=== PATIENT | female | born 1965 | race Caucasian/White ===

== ENCOUNTER → 2019-03-25 07:55 | Outpatient (BNVA) | payer OTHER, MEDICARE, SELFPAY | PROVIDERS: Family Provider Family Medicine; PCP Family Medicine; Visit Provider Anesthesiology | DX: G89.29 Other chronic pain (principal); M54.16 Radiculopathy, lumbar region; M47.817 Spondylosis without myelopathy or radiculopathy, lumbosacral region; Z79.891 Long term (current) use of opiate analgesic | CPT/HCPCS: 99213; 99214 ==

== ENCOUNTER → 2019-05-20 09:20 | Outpatient (BNVA) | payer MEDICARE, OTHER, SELFPAY | PROVIDERS: Family Provider Family Medicine; PCP Family Medicine; Visit Provider Nurse Practitioner | DX: M54.5 Low back pain (principal); G89.29 Other chronic pain; M25.511 Pain in right shoulder; M25.512 Pain in left shoulder; Z79.891 Long term (current) use of opiate analgesic | CPT/HCPCS: 99213; 99214 ==

== ENCOUNTER → 2019-06-20 10:42 | Outpatient (BNVA) | payer MEDICARE, OTHER, SELFPAY | PROVIDERS: Family Provider Family Medicine; PCP Family Medicine; Visit Provider Family Medicine | DX: F41.1 Generalized anxiety disorder (principal); Z23 Encounter for immunization; N18.3 Chronic kidney disease, stage 3 (moderate); I25.10 Atherosclerotic heart disease of native coronary artery without angina pectoris; K21.9 Gastro-esophageal reflux disease without esophagitis; J30.9 Allergic rhinitis, unspecified; E11.22 Type 2 diabetes mellitus with diabetic chronic kidney disease; F33.1 Major depressive disorder, recurrent, moderate; Z79.899 Other long term (current) drug therapy; J30.1 Allergic rhinitis due to pollen | CPT/HCPCS: 80048; 80069; 82306; 82310; 82570; 83036; 83970; 84156; 85007; 85027 ==

== ENCOUNTER → 2019-08-30 09:05 | Outpatient (BNVA) | payer MEDICARE, OTHER, SELFPAY | PROVIDERS: Family Provider Family Medicine; PCP Family Medicine; Visit Provider Anesthesiology | DX: G89.29 Other chronic pain (principal); M54.42 Lumbago with sciatica, left side; M54.16 Radiculopathy, lumbar region; M47.817 Spondylosis without myelopathy or radiculopathy, lumbosacral region; M53.3 Sacrococcygeal disorders, not elsewhere classified; M54.2 Cervicalgia; Z79.891 Long term (current) use of opiate analgesic | CPT/HCPCS: 99213; 99214 ==

== ENCOUNTER → 2019-10-13 09:59 | Outpatient (BNVA) | payer MEDICARE, OTHER, SELFPAY | PROVIDERS: Family Provider Family Medicine; PCP Family Medicine; Visit Provider Anesthesiology | DX: G89.29 Other chronic pain (principal); M54.42 Lumbago with sciatica, left side; M47.817 Spondylosis without myelopathy or radiculopathy, lumbosacral region; M53.3 Sacrococcygeal disorders, not elsewhere classified; M54.2 Cervicalgia; M25.552 Pain in left hip; Z79.891 Long term (current) use of opiate analgesic | CPT/HCPCS: 99214 ==

== ENCOUNTER → 2019-10-28 09:33 | Outpatient (BNVA) | payer MEDICARE, OTHER, SELFPAY | PROVIDERS: Family Provider Family Medicine; PCP Family Medicine; Referring Provider Internal Medicine; Visit Provider Internal Medicine | DX: N18.3 Chronic kidney disease, stage 3 (moderate) (principal) | CPT/HCPCS: 80069; 82310; 82570; 83970; 84156; 85007; 85027 ==

== ENCOUNTER → 2019-12-20 07:51 | Outpatient (BNVA) | payer MEDICARE, OTHER, SELFPAY | PROVIDERS: Family Provider Family Medicine; PCP Family Medicine; Visit Provider Anesthesiology | DX: G89.29 Other chronic pain (principal); M54.42 Lumbago with sciatica, left side; M54.41 Lumbago with sciatica, right side; M47.817 Spondylosis without myelopathy or radiculopathy, lumbosacral region; M54.16 Radiculopathy, lumbar region; M25.511 Pain in right shoulder; M25.512 Pain in left shoulder; M54.2 Cervicalgia; Z79.891 Long term (current) use of opiate analgesic | CPT/HCPCS: 99214 ==

== ENCOUNTER → 2020-02-10 08:35 | Outpatient (BNVA) | payer MEDICARE, OTHER, SELFPAY | PROVIDERS: Family Provider Family Medicine; PCP Family Medicine; Visit Provider Anesthesiology | DX: G89.29 Other chronic pain (principal); M54.16 Radiculopathy, lumbar region; M47.817 Spondylosis without myelopathy or radiculopathy, lumbosacral region; M53.3 Sacrococcygeal disorders, not elsewhere classified; M54.2 Cervicalgia; Z79.891 Long term (current) use of opiate analgesic | CPT/HCPCS: 99214 ==

== ENCOUNTER → 2020-02-28 13:35 | Outpatient (BNVA) | payer MEDICARE, OTHER, SELFPAY | PROVIDERS: Family Provider Family Medicine; PCP Family Medicine; Visit Provider Family Medicine | DX: E11.22 Type 2 diabetes mellitus with diabetic chronic kidney disease (principal); F41.1 Generalized anxiety disorder; I25.10 Atherosclerotic heart disease of native coronary artery without angina pectoris; K21.9 Gastro-esophageal reflux disease without esophagitis; F33.1 Major depressive disorder, recurrent, moderate; Z79.899 Other long term (current) drug therapy; N18.30 Chronic kidney disease, stage 3 unspecified | CPT/HCPCS: 80053; 80061; 83036 ==

== ENCOUNTER → 2020-03-21 08:27 | Outpatient (BNVA) | payer MEDICARE, OTHER, SELFPAY | PROVIDERS: Family Provider Family Medicine; PCP Family Medicine; Visit Provider Anesthesiology | DX: G89.29 Other chronic pain (principal); M54.16 Radiculopathy, lumbar region; M47.817 Spondylosis without myelopathy or radiculopathy, lumbosacral region; M54.2 Cervicalgia; M25.511 Pain in right shoulder; M25.512 Pain in left shoulder; Z79.891 Long term (current) use of opiate analgesic | CPT/HCPCS: 99214 ==

== ENCOUNTER → 2020-04-20 08:58 | Outpatient (BNVA) | payer MEDICARE, OTHER, SELFPAY | PROVIDERS: Family Provider Family Medicine; PCP Family Medicine; Visit Provider Nurse Practitioner | DX: G89.29 Other chronic pain (principal); M47.817 Spondylosis without myelopathy or radiculopathy, lumbosacral region; M54.16 Radiculopathy, lumbar region; M53.3 Sacrococcygeal disorders, not elsewhere classified; M15.9 Polyosteoarthritis, unspecified; M25.511 Pain in right shoulder; M25.512 Pain in left shoulder; M54.2 Cervicalgia; Z79.891 Long term (current) use of opiate analgesic; Z79.899 Other long term (current) drug therapy | CPT/HCPCS: 99212 ==

== ENCOUNTER → 2020-04-26 08:18 | Outpatient (BNVA) | payer MEDICARE, OTHER, SELFPAY | PROVIDERS: Family Provider Family Medicine; PCP Family Medicine; Referring Provider Internal Medicine; Visit Provider Internal Medicine | DX: N18.30 Chronic kidney disease, stage 3 unspecified (principal) | CPT/HCPCS: 80069; 82043; 82542; 82652; 85025 ==

== ENCOUNTER → 2020-06-15 08:39 | Outpatient (BNVA) | payer MEDICARE, OTHER, SELFPAY | PROVIDERS: Family Provider Family Medicine; PCP Family Medicine; Visit Provider Nurse Practitioner | DX: G89.29 Other chronic pain (principal); M54.16 Radiculopathy, lumbar region; M47.817 Spondylosis without myelopathy or radiculopathy, lumbosacral region; M25.551 Pain in right hip; M25.552 Pain in left hip; M54.2 Cervicalgia; M25.511 Pain in right shoulder; M25.512 Pain in left shoulder; M53.3 Sacrococcygeal disorders, not elsewhere classified; Z79.891 Long term (current) use of opiate analgesic | CPT/HCPCS: 99213 ==

== ENCOUNTER → 2020-08-10 08:11 | Outpatient (BNVA) | payer MEDICARE, OTHER, SELFPAY | PROVIDERS: Family Provider Family Medicine; PCP Family Medicine; Visit Provider Nurse Practitioner | DX: G89.29 Other chronic pain (principal); M47.817 Spondylosis without myelopathy or radiculopathy, lumbosacral region; M25.551 Pain in right hip; M25.552 Pain in left hip; M54.2 Cervicalgia; M15.9 Polyosteoarthritis, unspecified; G56.13 Other lesions of median nerve, bilateral upper limbs; M53.3 Sacrococcygeal disorders, not elsewhere classified; Z79.891 Long term (current) use of opiate analgesic | CPT/HCPCS: 99213; 99214 ==

== ENCOUNTER → 2020-08-22 09:22 | Outpatient (BNVA) | payer MEDICARE, OTHER, SELFPAY | PROVIDERS: Family Provider Family Medicine; PCP Family Medicine; Referring Provider Internal Medicine; Visit Provider Internal Medicine | DX: E11.22 Type 2 diabetes mellitus with diabetic chronic kidney disease (principal); N18.30 Chronic kidney disease, stage 3 unspecified | CPT/HCPCS: 80069; 82043; 82310; 83036; 83970; 85025 ==

== ENCOUNTER → 2020-10-17 08:45 | Outpatient (BNVA) | payer MEDICARE, OTHER, SELFPAY | PROVIDERS: Family Provider Family Medicine; PCP Family Medicine; Visit Provider Anesthesiology | DX: G89.29 Other chronic pain (principal); M54.16 Radiculopathy, lumbar region; M47.817 Spondylosis without myelopathy or radiculopathy, lumbosacral region; M54.2 Cervicalgia; Z79.891 Long term (current) use of opiate analgesic; Z87.891 Personal history of nicotine dependence | CPT/HCPCS: 99214 ==

== ENCOUNTER → 2020-12-12 07:50 | Outpatient (BNVA) | payer MEDICARE, OTHER, SELFPAY | PROVIDERS: Family Provider Family Medicine; PCP Family Medicine; Visit Provider Anesthesiology | DX: G89.29 Other chronic pain (principal); M54.16 Radiculopathy, lumbar region; M54.2 Cervicalgia; Z79.891 Long term (current) use of opiate analgesic | CPT/HCPCS: 99214 ==

== ENCOUNTER → 2021-02-06 07:58 | Outpatient (BNVA) | payer MEDICARE, OTHER, SELFPAY | PROVIDERS: Family Provider Family Medicine; PCP Family Medicine; Visit Provider Anesthesiology | DX: G89.29 Other chronic pain (principal); M54.16 Radiculopathy, lumbar region; M47.817 Spondylosis without myelopathy or radiculopathy, lumbosacral region; M25.551 Pain in right hip; M25.552 Pain in left hip; M15.9 Polyosteoarthritis, unspecified; M54.2 Cervicalgia; M25.512 Pain in left shoulder; M25.511 Pain in right shoulder; Z79.891 Long term (current) use of opiate analgesic; Z79.899 Other long term (current) drug therapy | CPT/HCPCS: 99214 ==

== ENCOUNTER → 2021-04-09 09:11 | Outpatient (BNVA) | payer MEDICARE, OTHER, SELFPAY | PROVIDERS: Family Provider Family Medicine; PCP Family Medicine; Visit Provider Anesthesiology | DX: G89.29 Other chronic pain (principal); M54.16 Radiculopathy, lumbar region; M47.817 Spondylosis without myelopathy or radiculopathy, lumbosacral region; M54.2 Cervicalgia; M53.3 Sacrococcygeal disorders, not elsewhere classified; M25.511 Pain in right shoulder; M25.512 Pain in left shoulder; M25.551 Pain in right hip; M25.552 Pain in left hip; Z79.899 Other long term (current) drug therapy; Z79.891 Long term (current) use of opiate analgesic; Z87.891 Personal history of nicotine dependence | CPT/HCPCS: 99214 ==

== ENCOUNTER → 2021-04-16 13:45 | Outpatient (BNVA) | payer MEDICARE, OTHER, SELFPAY | PROVIDERS: Family Provider Family Medicine; PCP Family Medicine; Visit Provider Family Medicine | DX: I25.10 Atherosclerotic heart disease of native coronary artery without angina pectoris (principal); Z13.220 Encounter for screening for lipoid disorders; Z13.6 Encounter for screening for cardiovascular disorders; E11.22 Type 2 diabetes mellitus with diabetic chronic kidney disease; N18.30 Chronic kidney disease, stage 3 unspecified | CPT/HCPCS: 80053; 80061; 83036 ==

== ENCOUNTER → 2021-08-20 09:57 | Outpatient (BNVA) | payer MEDICARE, OTHER, SELFPAY | PROVIDERS: Family Provider Family Medicine; PCP Family Medicine; Visit Provider Internal Medicine | DX: N18.31 Chronic kidney disease, stage 3a (principal) | CPT/HCPCS: 80069; 82043; 82306; 82310; 83970; 85025 ==

== ENCOUNTER 2022-03-19 09:36 | Outpatient (CLI) | payer MEDICARE, OTHER, SELFPAY ==
--- NOTE | 2022-03-19 10:45 | US_ITS ---
WS: [id number] Thyroid ultrasound, 03/19/2022 Clinical Data: E01.0 - Iodine-deficiency related diffuse (endemic) goiter Comparison: None. Findings: The right lobe of thyroid measures 5.2 cm x 3.0 cm x 2.8 cm. The echotexture shows irregularity with numerous cysts and nodules. The left lobe measures 4.5 cm x 1.8 cm x 1.6 cm. The echotexture shows irregularity with numerous cys ts and nodules. The isthmus measured 0.6 cm. with a nodule. US/US thyroid 58510 Impression: Multinodular goiter.
== END 2022-03-19 09:37 | disposition home or self-care (01) ==
LOC: RAD 09:38
PROVIDERS: Family Provider Family Medicine; PCP Family Medicine; Visit Provider Family Medicine
DX: E01.0 Iodine-deficiency related diffuse (endemic) goiter (principal)
CPT/HCPCS: 76536

== ENCOUNTER → 2022-04-29 13:16 | Outpatient (BNVA) | payer MEDICARE, OTHER, SELFPAY | PROVIDERS: Family Provider Family Medicine; PCP Family Medicine; Referring Provider Family Medicine; Visit Provider Internal Medicine | DX: E07.9 Disorder of thyroid, unspecified (principal); E04.1 Nontoxic single thyroid nodule; E04.2 Nontoxic multinodular goiter; K21.9 Gastro-esophageal reflux disease without esophagitis | CPT/HCPCS: 36415; 84439; 84443; 99204 ==

== ENCOUNTER → 2022-05-19 08:49 | Outpatient (BNVA) | payer MEDICARE, OTHER, SELFPAY | PROVIDERS: Family Provider Family Medicine; PCP Family Medicine; Visit Provider Family Medicine | DX: E11.22 Type 2 diabetes mellitus with diabetic chronic kidney disease (principal); N18.30 Chronic kidney disease, stage 3 unspecified; Z13.220 Encounter for screening for lipoid disorders; Z13.6 Encounter for screening for cardiovascular disorders; I25.10 Atherosclerotic heart disease of native coronary artery without angina pectoris | CPT/HCPCS: 80053; 80061; 83036 ==

== ENCOUNTER → 2022-08-20 09:44 | Outpatient (BNVA) | payer MEDICARE, OTHER, SELFPAY | PROVIDERS: Family Provider Family Medicine; PCP Family Medicine; Visit Provider Nurse Practitioner Family | DX: N18.9 Chronic kidney disease, unspecified (principal); Z79.899 Other long term (current) drug therapy | CPT/HCPCS: 80069; 82306; 82310; 82570; 83970; 84156; 85025 ==

== ENCOUNTER → 2023-03-30 09:58 | Outpatient (BNVA) | payer MEDICARE, OTHER, SELFPAY | PROVIDERS: Family Provider Family Medicine; PCP Family Medicine; Visit Provider Family Medicine | DX: I25.10 Atherosclerotic heart disease of native coronary artery without angina pectoris (principal); E11.22 Type 2 diabetes mellitus with diabetic chronic kidney disease; I10 Essential (primary) hypertension; N18.30 Chronic kidney disease, stage 3 unspecified | CPT/HCPCS: 80053; 80061; 83036; 83735 ==

== ENCOUNTER → 2023-06-10 07:44 | Outpatient (BNVA) | payer MEDICARE, OTHER, SELFPAY | PROVIDERS: Family Provider Family Medicine; PCP Family Medicine; Visit Provider Internal Medicine | DX: E07.9 Disorder of thyroid, unspecified (principal); E04.2 Nontoxic multinodular goiter; E04.9 Nontoxic goiter, unspecified | CPT/HCPCS: 99214 ==

== ENCOUNTER → 2023-08-19 09:08 | Outpatient (BNVA) | payer MEDICARE, OTHER, SELFPAY | PROVIDERS: Family Provider Family Medicine; PCP Family Medicine; Referring Provider Internal Medicine; Visit Provider Internal Medicine | DX: N18.30 Chronic kidney disease, stage 3 unspecified (principal) | CPT/HCPCS: 80069; 82043 ==

== ENCOUNTER 2023-11-03 10:06 | Observation (INO) | payer MEDICARE, OTHER, SELFPAY ==
[2023-11-03] VITALS (26 sets, daily range): BP systolic 120–150; BP diastolic 54–77; PULSE 49–78; RESP 9–26; TEMP 36.1–37; O2SAT 90–99; BMI 29.2
--- NOTE | 2023-11-03 05:57 | ECG_ITS ---
[facility] Test Date: 2023-11-03 Pat Name: Tabitha Schmidt Department: Room: Gender: Female Md Ophthalmologist: : 1965 Requested By: Betina Alex Order Number: [id number] Jewell MD: Robert Singleton M.D. Measurements Intervals Reedy Rate: 53 P: 8 NV: 151 QRS: 36 QRSD: 78 T: 48 QT: 426 QTc: 402 Interpretive Statements SINUS BRADYCARDIA SEPTAL MYOCARDIAL INFARCTION , PROBABLY OLD [40+ ms Q WAVE IN V1/V2] Compared to ECG 11/29/2018 09:14:35 No significant changes Electronically Signed On 11-03-2023 7:40:27 CDT by Robert Singleton M.D. [email or web address]/store/NU/[id number] f
[2023-11-03] MEDS: sodium chloride 0.9% 1,000 ML 30 ML IV (06:25)
[2023-11-03 06:42] LABS: Anion Gap 14.7 (5-19); Blood Urea Nitrogen 16 mg/dL (6-20); Calcium 8.9 mg/dL (8.5-10.5); Carbon Dioxide 23 mmol/L (22-29); Chloride 105 mmol/L (98-107); Creatinine Clr Calc Pharmacy 57.2024; Glomerular Filtration Rate 56.9 mL/min (90-130); Glucose 90 mg/dL (65-115); Osmolality Calculated 289 mOsm/kg (285-295); Potassium 3.7 mmol/L (3.5-5.1); Sodium 139 mmol/L (136-145)
--- NOTE | 2023-11-03 06:54 | W.PM.OPSUD ---
Surgery/Procedure H&P Update DATE OF PROCEDURE: November 03, 2023 DATE H&P PERFORMED: 10/09/23 PRIMARY INDICATION FOR PROCEDURE: Symptomatic thyroid nodules PLANNED PROCEDURE: Operation Date: 11/03/23 07:00 Proposed Procedures p Hemithyroidectomy 11530, E04.2(Right) - Himanshu Carroll MD
[2023-11-03] MEDS: ceFAZolin 2,000 mg SDV 2000 MG IVP ×3 (07:00→23:17)
--- NOTE | 2023-11-03 07:08 | ANES.PREANE2 ---
Pre-Anesthetic Assessment Height/Weight: Height 1.57 m Weight 72.575 kg Temp Pulse Resp BP Pulse Ox O2 Del Method 97.2 F L 56 L 16 150/76 97 Room Air 11/03/23 05:50 11/03/23 05:50 11/03/23 05:50 11/03/23 05:50 11/03/23 05:50 11/03/23 05:50 Operation Date: 11/03/23 07:00 Proposed Procedures p Hemithyroidectomy 10439, E04.2(Right) - Himanshu Carroll MD Familial anesthetic complications: None Was Beta Joanna taken within 24 hours: N/A Was Clonidine taken within 24 hours: N/A Last intake: Intake Last Liquid Date 11/02/23 Last Liquid Time 12:00 Last Solid Date 11/02/23 Last Solid Time 18:00 Social No alcohol and No tobacco Exam alert, oriented x 3, clear to auscultation bilaterally and regular rate & rhythm Airway Mallampati: Class II Dentition: full Pulmonary Sleep Apnea CV/HEM Coronary Artery Disease (CABG -- denies any CP, NETTLES, SYncope) and Hypertension Chronic Renal Insufficiency GI Gastroesophageal Reflux Disease gastric sleeve Metabolic Hyperlipidemia Anesthetic Plan ASA status: 3 Anesthesia: General Risk of > 500 ml blood loss (7ml/kg in children): No Medications/Allergies Home Medications Medication Instructions Recorded Confirmed Last Taken Type aspirin 81 mg tablet,delayed 81 mg PO ONCE 03/17/19 11/02/23 11/02/23 History release (Adult Low Dose Aspirin) diclofenac sodium 1 % topical gel 1 gm topical QID 03/17/19 11/02/23 Unknown History (Voltaren) nystatin 100,000 unit/gram topical 1 applic topical BID 03/17/19 11/02/23 Unknown History powder omega 5-fwn-duv-fish oil 1,200 mg 1 cap PO DAILY 03/17/19 11/02/23 11/02/23 History (144 mg-216 mg) capsule cholecalciferol (vitamin D3) 50 50 mcg PO DAILY 07/15/19 11/02/23 11/02/23 History mcg (2,000 unit) capsule ascorbic acid (vitamin C) 1,000 mg 1,000 mg PO DAILY 90 days #90 tabs 06/21/20 11/02/23 11/02/23 Rx tablet oxycodone 15 mg tablet 15 mg PO TID PRN pain 30 days #90 04/09/21 11/02/23 11/02/23 Rx tabs miscellaneous medical supply See Rx Instructions miscellaneous 08/06/21 11/02/23 Unknown Rx .COMPLEX #1 ea miscellaneous medical supply See Rx Instructions miscellaneous 04/10/22 11/02/23 Unknown Rx .COMPLEX #1 ea fexofenadine 180 mg tablet 180 mg PO Q24H 90 days #90 tabs 03/30/23 11/02/23 11/02/23 Rx fluoxetine 40 mg capsule 80 mg (2 x 40 mg) PO DAILY 90 days 09/28/23 11/02/23 11/02/23 Rx #90 caps fluticasone propionate 50 1 spray intranasal DAILY 90 days 09/28/23 11/02/23 Unknown Rx mcg/actuation nasal #54.6 mL spray,suspension furosemide 20 mg tablet 20 mg PO DAILY PRN edema 90 days 09/28/23 11/02/23 Unknown Rx #90 tabs pantoprazole 20 mg tablet,delayed 20 mg PO DAILY 90 days #90 tabs 09/28/23 11/02/23 11/02/23 Rx release simvastatin 40 mg tablet 40 mg PO DAILY 90 days #90 tabs 09/28/23 11/02/23 11/02/23 Rx Allergies Allergy/AdvReac Type Severity Reaction Status Date / Time No Known Allergies Allergy Verified 09/28/23 07:17 Current Medications Generic Name Dose Route Start Last Admin Trade Name Freq PRN Reason Stop Dose Admin Sodium Chloride 1,000 mls @ 30 mls/hr 11/03/23 05:45 11/03/23 06:25 Sodium Chloride 0.9% IV 11/04/23 05:44 30 mls/hr .Q24H SUMA Administration PFS Anesthesia Medical History YOLIS (obstructive sleep apnea) Encounter for long-term opiate analgesic use CAD (coronary artery disease) ELANA and BB intolerance CKD (chronic kidney disease) Depression NIHARIKA (generalized anxiety disorder) Controlled type 2 diabetes mellitus Bilateral carpal tunnel syndrome Pain management contract signed Lumbosacral spondylosis without myelopathy Bilateral hip pain Chronic neck pain Chronic pain of both shoulders Long-term use of high-risk medication Generalized osteoarthritis Chronic radicular low back pain Chronic lumbosacral pain Median neuropathy of both upper extremities Chronic sacroiliac joint pain Surgical History S/P CABG x 2 11/2013- [place] S/P gastric surgery Laparoscopic vertical gastric sleeve performed on 10/20/17. S/P carpal tunnel release RIGHT 2001- [facility] * Dr. Danielle 07/31/16 Open release of the median nerve at the wrist on the right. 06/06/16 Dr. Danielle Open release of the median nerve at the wrist on the LEFT S/P decompression of ulnar nerve Dr Danielle 12/11/16 Open release of the ulnar nerve at the left elbow, with subcutaneous transposition. 02/09/17*- RIGHT SIDE Family History Mother Diabetes Denies family history of Anesthesia complication Bleeding disorder Social History Smoking and tobacco/nicotine status: former use of tobacco/nicotine Quit status (tobacco/nicotine): has quit using Year quit tobacco: 2007 Second hand smoke exposure: No Alcohol intake: never Substance/Drug Use: never Adopted: No Caregiver/support person: No Lives independently: Yes Female Reproductive History Spontaneous abortions: No Data Anesthesia 11/03/23 06:14 BMP 11/03/23 06:14 Sodium 139 Potassium 3.7 Chloride 105 Carbon Dioxide 23 BUN 16 Creatinine 1.0 H Glucose 90 Calcium 8.9 Cardiac Studies: No Data to Display
[2023-11-03] MEDS: ceFAZolin 1,000 mg SDV 1000 MG IRRIGATION (07:57)
[2023-11-03] MEDS: lidocaine-epi 1% 20 mL INJ INJECTION (07:58)
[2023-11-03] MEDS: thrombin 5,000 unit SDV 5000 UNIT XX (08:43)
[2023-11-03] MEDS: fluorescein 1 mg Strip 3 MG XX (08:45)
[2023-11-03] MEDS: EPINEPHrine 1 mg/mL INJ 3 MG XX (08:45)
[2023-11-03] MEDS: neomycin-poly-bacitracin oint 28 gm 1 APPLIC TOPICAL (09:16)
--- NOTE | 2023-11-03 09:47 | P.OP_ITS ---
Operative Report Date of procedure: November 03, 2023 Pre-op diagnosis: Symptomatic right thyroid lobe and isthmus nodules Post-op diagnosis: Same Post-op findings: Large right thyroid lobe and isthmus nodules O/W Normal right tracheoesophageal groove Procedure done: Right hemithyroidectomy with isthmusectomy Implants: None Specimens removed/disposition: Right thyroid lobe and isthmus Pathology: Right thyroid lobe and isthmus Surgeon: Himanshu Carroll MD Printing Sign Machine Operator: Adal Montilla Estimated blood loss: 20mL IV fluids: 800mL Urine output: 950mL Complications: None Findings: Large right thyroid lobe and thyroid isthmus nodules O/W Normal right tracheoesophageal groove Brief History: 59 yo wf with a h/o Right thyroid lobe and isthmus nodules that are symptomatic - the patient desires surgical therapy. Procedure: The patient was identified in the preop holding area and was taken to the operating room where she was placed on the operating table in the supine position. Anesthesia was obtained with general endotracheal anesthesia with the nerve on a nerve monitoring electrodes of the endotracheal tube. A horizontal skin incision was then marked out 2 fingerbreadths above the sternal notch and was injected with local anesthesia. The patient was then prepped and draped in the usual sterile fashion and the incision was made through the skin with a 15 blade. The dissection proceeded into the deep tissues using electrocautery until the strap muscles were visualized. The strap muscles were then dissected free from the overlying tissues and were divided in the avascular midline in the sagittal plane. The strap muscles were then retracted off of the right thyroid lobe and then the dissection proceeded down to the airway. The thyroid isthmus was dissected off of the airway and was amputated on the left side of the isthmus using the harmonic scalpel. At this point the right thyroid lobe was dissected in a circumferential fashion. Attention was turned to the inferior pole which was dissected free from the thyrothymic horn. Clips were placed on the vessels as they attached to the capsule of the thyroid and these were divided using bipolar, micro bipolar cautery. As the dissection proceeded the thyroid lobe was rotated medially. The vagus nerve was then stimulated in the carotid sheath and was found to stimulate positive to the stimulating hemostat. The dissection then proceeded superiorly until the recurrent nerve was identified in the thyroid bed. This was protected as the dissection proceeded superiorly. The superior pole vessels were individually dissected and ligated with clips and divided. As this was accomplished the right thyroid lobe was rotated medially while protecting the recurrent nerve. The dissection proceeded medially until the right lobe and isthmus had been fully removed. Attention was turned to thyroid bed and final hemostasis was achieved in thyroid bed using bipolar cautery. At this point the wound was irrigated with copious amount normal saline and the wound was inspected for hemostasis which was found to be adequate. The superior and inferior parathyroid glands were identified in the normal anatomic positions and they were preserved in place. At this point Gelfoam soaked in thrombin and Decadron was placed over the recurrent nerve on the right. The right vagus nerve was again stimulated and the carotid sheath and was found to stimulate positive. At this point the a drain was placed in the wound and the wound was closed in layers with 4-0 Monocryl sutures in the s ubcu and a running 5-0 Prolene on the skin. The procedure was then terminated and control of the patient was returned to anesthesia where she underwent an uneventful reversal of anesthesia. The patient was taken to the intensive care unit stable condition. There were no operative anesthetic complications.
[2023-11-03] MEDS: lactated ringers 1,000 ML 100 ML IV ×2 (10:11→23:17)
[2023-11-03] MEDS: famotidine 20 mg/2 mL INJ IVP ×2 (10:14→21:00)
--- NOTE | 2023-11-03 10:30 | ANE.PACU2 ---
Inpatient post-anesthesia follow up: Airway intact: Yes Vital signs: Temperature 97 F Pulse Rate 56 Respiratory Rate 16 Blood Pressure 142/63 Pulse Oximetry 98 Oxygen Delivery Me thod Nasal Cannula Oxygen Flow Rate 2 Fraction of Inspir ed Oxygen Hydration adequate: Yes Nausea and vomiting: No Pain level: 1 Mental status: Baseline
[2023-11-03] MEDS: oxyCODONE 5 mg IR Tab/Cap 15 MG PO ×2 (11:39→19:42)
--- NOTE | 2023-11-03 12:10 | PC.NURSE ---
received patient from Er staff at 0950. HR: 69, BP: 120/58, SPO2: 95% on 2 LNC. Temp: 97.0 axillary. Patient is groggy, but oriented to person, place, time, and situation. THroat is unremarkable. Incision present, not swollen, scan amount of sanguinous drainage into OLIVE drain. Patient reports some minor pain, but it is tolerable.
[2023-11-03] MEDS: morphine 4 mg/mL SDV 1 mL 2 MG IVP ×3 (14:07→23:38)
--- NOTE | 2023-11-03 16:19 | PC.NURSE ---
WHile sleeping, patient becomes bradycardic. heart rate in the low 50's. Otherwise asymptomatic. Blood pressure WNL, SPO2 WNL. Wakes easily and is alert and oriented to person, place, time, and situation. Nurse alerted Dr Carroll per post op observation instructions. No new orders received.
--- NOTE | 2023-11-03 17:32 | PC.NURSE ---
SHift SUmmary: Uneventful shift. Up to a chair for most of shift. No swelling, no difficulty breathing reported. 15mL of sanguinous drainage form OLIVE drain. Home Cpap at night
--- NOTE | 2023-11-03 17:46 | P.PN_ITS ---
Subjective 2 Subjective: 58 yo wf who is night of surgery s/p rig ht hemithyroidectomy. The patient is doing well and has no c/o. She is taking po well. Medications: Reviewed: Yes Vitals/I&O/Wt Last Vital Signs Temp 97 F L 11/03/23 09:46 Pulse 53 L 11/03/23 15:00 Resp 16 11/03/23 11:39 BP 142/63 11/03/23 10:45 Pulse Ox 92 11/03/23 15:00 O2 Del Method Room Air 11/03/23 15:00 O2 Flow Rate 2 11/03/23 09:46 11/03/23 11/03/23 11/03/23 06:59 14:59 22:59 Intake Total 556 / 556 Output Total 300 / 300 15 / 315 Balance 256 / 256 -15 / 241 Weight last 48 hrs Weight 73 kg Weight 72.575 kg Physical Exam 2 Const: COMMON NORMALS: no acute distress, average body habitus, patient oriented x3, alert and well nourished HENMT: COMMON NORMALS: normocephalic, atraumatic and Normal external nose present HEAD & SCALP: normocephalic and atraumatic NOSE: Normal external nose present and Normal nares present MOUTH: Normal oral and palatal mucosa present Eye: COMMON NORMALS: conjunctivae normal CONJUNCTIVA: Yes conjunctivae normal Neck/C-Spine: COMMON NORMALS: full ROM, no lymphadenopathy and supple G ENERAL: Yes other (Thyroid incision without swelling.) Lymph: LYMPHATIC: no lymphadenopathy noted Resp: COMMON NORMALS: normal respiratory effort, No retractions, No use of accessory muscles and clear to auscultation bilaterally AUSCULTATION: clear to auscultation bilaterally Cardio: COMMON NORMALS: regular rate, regular rhythm and No murmurs present (Cardio) RATE: regular rate RHYTHM: regular rhythm GI: COMMON NORMALS: Normal to inspection, nondistended, normoactive bowel sounds present Extremity: COMMON NORMALS: normal to inspection Neuro: COMMON NORMALS: patient oriented x3 SENSORIUM/ORIENTATION: Yes alert Urinary Catheter Management: Acosta: Cath Placed During This Visit: yes, but has since been removed by the nurse Reason for Continuing Indwelling Catheter: Decision to DC Catheter Urinary Catheter Date of Insertion: 11/03/23 Urinary Catheter Time of Insertion: 07:10 Date Urinary Catheter Removed: 11/03/23 Time Urinary Catheter Discontinued: 13:36 Data 11/03/23 06:14 A&P Assessment and plan (1) Thyroid nodule: Impression: Night of surgery s/p right hemithyroidectomy doing well Plan: - ICU observation overnight - Anticipate d/c in the am - Adavance diet - Pain control - Closed suction drainage Attestations 2 Medical Necessity Statement*: The patient requires overnight observation of her airway. Coding Level of Care Code Acute Code for Chg Fwd Diagnoses Thyroid nodule E04.1
[2023-11-03] MEDS: docusate sodium 100 mg Capsule PO (18:46)
[2023-11-03] MEDS: diphenhydrAMINE 50 mg/mL SDV 1mL 12.5 MG IVP (21:07)
[2023-11-04] VITALS (11 sets, daily range): BP systolic 115–153; BP diastolic 53–67; PULSE 48–69; RESP 14–21; TEMP 36.6; O2SAT 95–97; BMI 30.4
[2023-11-04] MEDS: oxyCODONE 5 mg IR Tab/Cap 15 MG PO (04:32)
--- NOTE | 2023-11-04 05:09 | P.PN_ITS ---
Subjective 2 Subjective: 58 yo wf who is POD #1 s/p right hemithy roidectomy who is doing well. The patient reports minimal pain, and is taking po well. Medications: Reviewed: Yes Vitals/I&O/Wt Last Vital Signs Temp 98.6 F 11/03/23 21:15 Pulse 49 L 11/04/23 04:00 Resp 19 H 11/04/23 04:32 BP 126/55 11/04/23 04:00 Pulse Ox 97 11/04/23 04:00 O2 Del Method CPAP 11/04/23 04:00 O2 Flow Rate 2 11/03/23 09:46 11/03/23 11/03/23 11/04/23 14:59 22:59 06:59 Intake Total 556 / 556 950 / 1506 1036.666 / 2542.666 Output Total 300 / 300 15 / 315 300 / 615 Balance 256 / 256 935 / 1191 736.666 / 1927.666 Weight last 48 hrs Weight 73 kg Weight 72.575 kg Physical Exam 2 Const: COMMON NORMALS: no acute distress, patient oriented x3 and alert HENMT: COMMON NORMALS: normocephalic, atraumatic and Normal external nose present HEAD & SCALP: normocephalic and atraumatic FACE & SINUS: normal facial exam NOSE: Normal external nose present Eye: COMMON NORMALS: Equal, round and reactive pupils present and conjunctivae normal CONJUNCTIVA: Yes conjunctivae normal PUPIL: Yes Equal, round and reactive pupils present Neck/C-Spine: COMMON NORMALS: full ROM, no lymphadenopathy, supple and Thyroid normal (Incision intact without swelling or erythema.) THYROID: Thyroid normal (Incision intact without swelling or erythema.) Resp: COMMON NORMALS: normal respiratory effort and No use of accessory muscles Cardio: COMMON NORMALS: regular rate, regular rhythm and No murmurs present (Cardio) RATE: regular rate RHYTHM: regular rhythm GI: COMMON NORMALS: Normal to inspection, nondistended, normoactive bowel sounds present Neuro: COMMON NORMALS: patient oriented x3 SENSORIUM/ORIENTATION: Yes alert Urinary Catheter Management: Acosta: Cath Placed During This Visit: yes, but has since been removed by the nurse Reason for Continuing Indwelling Catheter: Decision to DC Catheter Urinary Catheter Date of Insertion: 11/03/23 Urinary Catheter Time of Insertion: 07:10 Date Urinary Catheter Removed: 11/03/23 Time Urinary Catheter Discontinued: 13:36 Data 11/03/23 06:14 A&P Assessment and plan (1) Thyroid nodule: Impression: 58 yo wf doing well s/p right hemithyroidectomy Plan: - D/C to home - Resume preop medications - Apply CORRINE to neck wound TID - Maintain OLIVE drain log - F/U in Dr. Carroll's office on 11/06/23 @ 13:00 hours - Notify Dr. Carroll for any problems Attestations 2 Medical Necessity Statement*: The patient required overnight observation of her airway Coding Level of Care Code Acute Code for Chg Fwd Diagnoses Thyroid nodule E04.1
[2023-11-04] MEDS: ceFAZolin 2,000 mg SDV 2000 MG IVP (06:03)
--- NOTE | 2023-11-04 07:32 | PC.NURSE ---
Discharge Note Patient discharged to [home] via [w/c to POV] accompanied by [her spouse]. Discharge instructions reviewed with patient and/or security representative. Belongings/home medications returned. No new medications were ordered for the pt.
== END 2023-11-04 07:14 | disposition home or self-care (01) ==
LOC: ICU 10:06
PROVIDERS: Anesthesiology; Admitting Provider Specialist; Family Provider Family Medicine; PCP Family Medicine; Visit Provider Specialist
PROC: (CPT 60220; principal; 2023-11-03 07:00)
DX: E04.1 Nontoxic single thyroid nodule (principal); I10 Essential (primary) hypertension
CPT/HCPCS: 60220; 36415; 51702; 80048; 88307; 93005; G0378; J0131; J0171; J0330; J0690; J1100; J1170; J1200; J2250; J2270; J2371; J2405; J2704; J3010; J3490; J7030; J7120

== ENCOUNTER → 2024-04-04 09:35 | Outpatient (BNVA) | payer MEDICARE, OTHER, SELFPAY | PROVIDERS: Family Provider Family Medicine; PCP Family Medicine; Visit Provider Family Medicine | DX: E11.22 Type 2 diabetes mellitus with diabetic chronic kidney disease (principal); E89.0 Postprocedural hypothyroidism; N18.30 Chronic kidney disease, stage 3 unspecified | CPT/HCPCS: 80053; 80061; 83036; 84443 ==

== ENCOUNTER → 2024-07-04 09:59 | Outpatient (BNVA) | payer MEDICARE, OTHER, SELFPAY | PROVIDERS: Family Provider Family Medicine; PCP Family Medicine; Visit Provider Family Medicine | DX: K21.9 Gastro-esophageal reflux disease without esophagitis (principal); I25.10 Atherosclerotic heart disease of native coronary artery without angina pectoris; J30.9 Allergic rhinitis, unspecified; G47.33 Obstructive sleep apnea (adult) (pediatric); F41.1 Generalized anxiety disorder; F33.1 Major depressive disorder, recurrent, moderate; G89.29 Other chronic pain; J30.1 Allergic rhinitis due to pollen; Z79.899 Other long term (current) drug therapy | CPT/HCPCS: 80069; 82043 ==

== ENCOUNTER → 2024-08-02 10:11 | Outpatient (BNVA) | payer MEDICARE, OTHER, SELFPAY | PROVIDERS: Family Provider Family Medicine; PCP Family Medicine; Visit Provider Family Medicine | DX: N18.30 Chronic kidney disease, stage 3 unspecified (principal) | CPT/HCPCS: 80048 ==

== ENCOUNTER 2024-09-22 09:15 | Outpatient (CLI) | payer MEDICARE, OTHER, SELFPAY ==
--- NOTE | 2024-09-22 09:20 | MM_ITS ---
WS: [id number] VIEWS: MLO and CC views both breasts. 3D digital tomosynthesis is also included in this exam. Comparison made with prior exam of 01/10/2016.. Findings: There are scattered areas of fibroglandular density. No signs of suspicious mass, tumor calcification or architectural distortion. MM/MM scr BI tomosynthesis [id number] Impression: BI-RADS: 2 - Benign. FOLLOW-UP: 1 Year Follow-up This mammogram was also analyzed by the Computer Aided Detection System R2 Imag e Laboratory Geneticist.
== END 2024-09-22 09:16 | disposition home or self-care (01) ==
PROVIDERS: Family Provider Family Medicine; PCP Family Medicine; Visit Provider Family Medicine
DX: Z12.39 Encounter for other screening for malignant neoplasm of breast (principal)
CPT/HCPCS: 77063; 77067

== ENCOUNTER → 2024-10-03 09:23 | Outpatient (BNVA) | payer MEDICARE, OTHER, SELFPAY | PROVIDERS: Family Provider Family Medicine; PCP Family Medicine; Visit Provider Family Medicine | DX: E11.9 Type 2 diabetes mellitus without complications (principal); E89.0 Postprocedural hypothyroidism; I10 Essential (primary) hypertension; N18.30 Chronic kidney disease, stage 3 unspecified | CPT/HCPCS: 80053; 80069; 82043; 83036; 84443 ==

== ENCOUNTER 2024-10-17 07:45 | Outpatient (CLI) | payer MEDICARE, OTHER, SELFPAY ==
--- NOTE | 2024-10-17 07:51 | XRR_ITS ---
PROCEDURE INFORMATION: Exam: XR Lumbosacral Spine Exam date and time: 10/17/2024 8:13 AM Age: 59 years old Clinical indication: Low back pain; Additional info: Lumbosacral spondylosis TECHNIQUE: Imaging protocol: Radiologic exam of the lumbosacral spine. Views: 6 or more views. Including flexion and extension views. COMPARISON: MR lumbar spine wo con* [id number] 03/24/2018 1:05 PM FINDINGS: Bones/joints: Normal lumbar lordosis is preserved. No significant scoliosis. Vertebral body heights are preserved. There is grade 1 anterolisthesis of L4-L5. No abnormal motion on flexion/extension images. Soft tissues: Unremarkable. XR/XR lumbar spine 6V w f/e [id number] IMPRESSION: 1. No compression fracture of the lumbar spine. 2. No abnormal motion on flexion/extension images.
== END 2024-10-17 07:46 | disposition home or self-care (01) ==
LOC: RAD 07:49
PROVIDERS: Family Provider Family Medicine; PCP Family Medicine; Visit Provider Student in an Organized Health Care Education/Training Program
DX: M47.817 Spondylosis without myelopathy or radiculopathy, lumbosacral region (principal)
CPT/HCPCS: 72114